=== PATIENT | female | born 1970 | race Caucasian/White ===

== ENCOUNTER 2021-04-21 20:48 | Emergency (ER) | payer MEDICAID ==
[~2021-04-21] VITALS: Ht 180.3 cm; Wt 122.0 kg
[2021-04-21 20:56] VITALS: BP 150/95
[2021-04-21] MEDS ORDERED: ONDA4TAB6 PO (23:00)
[2021-04-21] MEDS ORDERED: HYDR-3965 PO (23:00)
== END 2021-04-21 23:11 | disposition home or self-care (01) ==
LOC: ER 20:49
DX: S92.355A Nondisplaced fracture of fifth metatarsal bone, left foot, initial encounter for closed fracture (principal); S32.2XXA Fracture of coccyx, initial encounter for closed fracture; Z79.899 Other long term (current) drug therapy; W19.XXXA Unspecified fall, initial encounter; Y93.89 Activity, other specified; Y92.814 Boat as the place of occurrence of the external cause; Y99.8 Other external cause status
CPT/HCPCS: 72220; 73630; 99284